=== PATIENT | female | born 1975 | race Caucasian/White ===

== ENCOUNTER 2017-11-03 08:41 | Emergency (ER) | payer SELFPAY ==
[~2017-11-03] VITALS: Ht 165.1 cm; Wt 136.0 kg
[~2017-11-03 08:41] MED LIST: CHLO.12%30 SSP; IBUP800T23 PO; PENI500T PO; PROM50SU PO; ZOFR4TAB3 SL
[2017-11-03 08:42] VITALS: BP 198/111; PULSE 81; RESP 18; TEMP 98.4; O2SAT 98
[2017-11-03 09:04] VITALS: BP 236/106; PULSE 70; RESP 12; O2SAT 100
[2017-11-03] MEDS ORDERED: ASPIRIN 325 MG TAB PO ONE (09:45)
[2017-11-03] MEDS: NITROGLYCERIN 0.4 MG SL 25 TABS/BTL SL SCH ×2 (09:50→10:10)
[2017-11-03 09:52] LABS: AUTOMATED NEUTROPHIL # 3.8 TH/MM3 (1.8-7.7); BASOPHIL # 0.1 TH/MM3 (0-0.2); BASOPHIL % 0.8 % (0.0-2.0); EOSINOPHIL # 0.1 TH/MM3 (0-0.4); EOSINOPHIL % 1.2 % (0.0-4.0); HEMATOCRIT 43.9 % (35.0-46.0); LYMPH % 35.9 % (9.0-44.0); LYMPHOCYTE # 2.4 TH/MM3 (1.0-4.8); MEAN CORPUSCULAR HEMOGLOBIN 31.3 PG (27.0-34.0); MEAN CORPUSCULAR HGB CONC 33.7 % (32.0-36.0); MONO % 4.6 % (0.0-8.0); NEUT % 57.5 % (16.0-70.0); PLATELET COUNT 184 TH/MM3 (150-450); RED BLOOD COUNT 4.72 MIL/MM3 (4.00-5.30); RED CELL DISTRIBUTION WIDTH 13.5 % (11.6-17.2); WHITE BLOOD COUNT 6.5 TH/MM3 (4.0-11.0)
--- NOTE | 2017-11-03 09:53 | PD ---
HPI Chief Complaint: Chest Pain Time Seen by Provider: 09:30 Travel History International Travel<30 days: No Contact w/Intl Traveler<30days: No Traveled to known affect area: No History of Present Illness HPI 42 y/o female presents with central chest pain that has been present for the past 2 days. She states it feels like a pressure on her chest. She denies taking any medication for this. She denies any other concurrent complaints. Quality is pressure. Severity is moderate. She denies any recurrent history of this. She denies any workup in the past. She denies specific modifying factors. FORMERLY [facility] Past Medical History Medical History: Denies Significant Hx Cancer: No Cardiovascular Problems: No Diabetes: No Diminished Hearing: No Endocrine: No Genitourinary: No Hepatitis: No Hiatal Hernia: No Immune Disorder: No Musculoskeletal: No Neurologic: No Psychiatric: No Reproductive: No Respiratory: No Immunizations Current: Yes Thyroid Disease: No ?: Not : 2 Para: 2 Miscarriage: 0 : 0 Past Surgical History Abdominal Surgery: No AICD: No Cardiac Surgery: No Cholecystectomy: Yes Ear Surgery: No Endocrine Surgery: No Eye Surgery: No Genitourinary Surgery: No Gynecologic Surgery: Yes (hysterectomy 1999) Hysterectomy: Yes Joint Replacement: No Oral Surgery: No Pacemaker: No Thoracic Surgery: No Family History Family Myocardial Infarction: No Social History Alcohol Use: No Tobacco Use: No Substance Use: No Allergies-Medications (Allergen,Severity, Reaction): Coded Allergies: No Known Allergies (Unverified Adverse Reaction, Unknown, 11/03/17) Reported Meds & Prescriptions Reported Meds & Active Scripts Active No Active Prescriptions or Reported Medications Review of Systems Except as stated in HPI: all other systems reviewed are Neg Physical Exam Narrative GENERAL: Well-nourished, well-developed patient. SKIN: Warm and dry. HEAD: Normocephalic and atraumatic. EYES: No injection or drainage. ENT: No nasal drainage noted. NECK: Supple, trachea midline. CARDIOVASCULAR: Regular rate and rhythm RESPIRATORY: Breath sounds equal bilaterally. No accessory muscle use. GASTROINTESTINAL: Abdomen soft, non-tender, nondistended. EXTREMITIES: No edema. NEUROLOGICAL: Awake and alert. Motor and sensory grossly within normal limits. Normal speech. Data Data Last Documented VS Vital Signs Date Time Temp Pulse Resp B/P (MAP) Pulse Ox O2 Delivery O2 Flow Rate FiO2 11/03/17 11:00 62 14 132/63 (86) 99 Nasal Cannula 2.00 11/03/17 08:42 98.4 Orders Orders Electrocardiogram (11/03/17 08:48) Complete Blood Count With Diff (11/03/17 08:48) Basic Metabolic Panel (Bmp) (11/03/17 08:48) Ckmb (Isoenzyme) Profile (11/03/17 08:48) Troponin I (11/03/17 08:48) Chest, Single Ap (11/03/17 08:48) Iv Access Insert/Monitor (11/03/17 08:48) Ecg Monitoring (11/03/17 08:48) Oxygen Administration (11/03/17 08:48) Oximetry (11/03/17 08:48) D-Dimer (11/03/17 09:19) Aspirin (Aspirin) (11/03/17 09:45) Nitroglycerin Sl (Nitrostat Sl) (11/03/17 09:45) Ondansetron Inj (Zofran Inj) (11/03/17 10:30) Ct Pulmonary Angiogram (11/03/17 ) Iohexol 350 Inj (Omnipaque 350 Inj) (11/03/17 12:38) Troponin I (11/03/17 12:52) Ed Discharge Order (11/03/17 13:58) Labs Laboratory Tests Test 11/03/17 10:13 11/03/17 13:00 White Blood Count 6.5 TH/MM3 Red Blood Count 4.72 MIL/MM3 Hemoglobin 14.8 GM/DL Hematocrit 43.9 % Mean Corpuscular Volume 93.0 FL Mean Corpuscular Hemoglobin 31.3 PG Mean Corpuscular Hemoglobin Concent 33.7 % Red Cell Distribution Width 13.5 % Platelet Count 184 TH/MM3 Mean Platelet Volume 9.8 FL Neutrophils (%) (Auto) 57.5 % Lymphocytes (%) (Auto) 35.9 % Monocytes (%) (Auto) 4.6 % Eosinophils (%) (Auto) 1.2 % Basophils (%) (Auto) 0.8 % Neutrophils # (Auto) 3.8 TH/MM3 Lymphocytes # (Auto) 2.4 TH/MM3 Monocytes # (Auto) 0.3 TH/MM3 Eosinophils # (Auto) 0.1 TH/MM3 Basophils # (Auto) 0.1 TH/MM3 CBC Comment AUTO DIFF Differential Comment AUTO DIFF CONFIRMED Platelet Estimate NORMAL Platelet Morphology Comment NORMAL D-Dimer Quantitative (PE/DVT) 0.57 MG/L FEU Blood Urea Nitrogen 14 MG/DL Creatinine 1.06 MG/DL Random Glucose 110 MG/DL Calcium Level 8.9 MG/DL Sodium Level 140 MEQ/L Potassium Level 4.0 MEQ/L Chloride Level 106 MEQ/L Carbon Dioxide Level 30.0 MEQ/L Anion Gap 4 MEQ/L Estimat Glomerular Filtration Rate 56 ML/MIN Total Creatine Kinase 62 U/L Troponin I LESS THAN 0.02 NG/ML LESS THAN 0.02 NG/ML MDM Medical Decision Making Medical Screen Exam Complete: Yes Emergency Medical Condition: Yes Medical Record Reviewed: Yes (past history confirmed) Interpretation(s) CBC & BMP Diagram 11/03/17 10:13 Calcium Level 8.9 Last 24 hours Impressions Chest X-Ray 11/03/17 0848 Signed Impressions: Service Date/Time: Friday, November 03, 2017 09:10 - CONCLUSION: No acute cardiopulmonary process. Estiven Ford MD CT Angiography 11/03/17 0000 Signed Impressions: Service Date/Time: Friday, November 03, 2017 12:24 - CONCLUSION: Normal examination. Mik Canela MD Differential Diagnosis PE, gastritis, musculoskeletal, cardiac Narrative Course Will check blood work, chest x-ray, EKG and dose with aspirin and nitroglycerin and reevaluate ed workup no emergent, offered pharmacy technology instructor observation, wanting to go home, will check second troponin and if normal discharge patient repeat troponin negative, Patient denies any new complaints and states that they are feeling better. not wanting to stay, Patient happy with care, all questions answered. Patient knows that follow up is incumbent on them and to return to the emergency room immediately if new or worsening symptoms develop. Patient given strict return precautions, vitals reviewed and are normal, agrees to further workup as an outpatient. Diagnosis Primary Impression: Chest pain Qualified Codes: R07.9 - Chest pain, unspecified Patient Instructions: General Instructions Additional Instructions: return as needed, follow with primary tommorrow Med/Other Pt SpecificInfo: No Change to Meds Scripts No Active Prescriptions or Reported Meds Disposition: DISCHARGE HOME Condition: Stable Samina Bella MD Nov 03, 2017 09:53
[2017-11-03 09:54] LABS: HEMO FLAGS AUTO DIFF
[2017-11-03 10:15] VITALS: BP 155/80; PULSE 76; RESP 20; O2SAT 98
--- NOTE | 2017-11-03 10:19 | RADRPT ---
EXAM DATE/TIME: 11/03/2017 09:10 [facility] COMPARISON: No previous studies available for comparison. INDICATIONS : Chest pain x 1day. MEDICAL HISTORY : None. SURGICAL HISTORY : None. ENCOUNTER: Initial ACUITY: 1 day PAIN SCORE: 7/10 LOCATION: Bilateral chest FINDINGS: A single view of the chest demonstrates the lungs to be symmetrically aerated without evidence of mas s, infiltrate or effusion. The cardiomediastinal contours are unremarkable. Osseous structures are intact. CONCLUSION: No acute cardiopulmonary process. Estiven Ford MD on November 03, 2017 at 10:17 Board Certified Radiologist. This report was verified electronically.
[2017-11-03 10:30] VITALS: BP 142/68; PULSE 66; RESP 20; O2SAT 98
[2017-11-03] MEDS ORDERED: ONDANSETRON HCL 4 MG/2 ML VIAL IV PUSH ONE (10:30)
[2017-11-03 10:59] LABS: PLATELET ESTIMATE SMEAR NORMAL (NORMAL); PLATELET MORPHOLOGY NORMAL (NORMAL); SCAN/DIFF AUTO DIFF CONFIRMED
[2017-11-03 11:00] VITALS: BP 132/63; PULSE 62; RESP 14; O2SAT 99
[2017-11-03 11:16] LABS: ANION GAP 4 MEQ/L (5-15); BLOOD UREA NITROGEN 14 MG/DL (7-18); CHLORIDE 106 MEQ/L (98-107); GLOMERULAR FILTRATION RATE 56 ML/MIN (>89); SODIUM (NA) 140 MEQ/L (136-145)
[2017-11-03 11:21] LABS: CREATINE KINASE 62 U/L (26-192)
[2017-11-03] MEDS ORDERED: IOHEXOL 350 MG/ML 10 ML VIAL (for RAD DIAG) IVCONTRAST ONE (12:38)
--- NOTE | 2017-11-03 12:43 | RADRPT ---
EXAM DATE/TIME: 11/03/2017 12:24 [facility] COMPARISON: No previous studies available for comparison. INDICATIONS : Chest pain with shortness of breath. IV CONTRAST: 50 cc Omnipaque 350 (iohexol) IV RADIATION DOSE: 24.17 CTDIvol (mGy) MEDICAL HISTORY : None SURGICAL HISTORY : Cholecystectomy. Hysterectomy. ENCOUNTER: Initial ACUITY: 2 days PAIN SCALE: 4/10 LOCATION: Bilateral chest TECHNIQUE: Volumetric scanning of the chest was performed using a pulmonary embolism protocol MIP images were re constructed. Using automated exposure control and adjustment of the mA and/or kV according to patien t size, radiation dose was kept as low as reasonably achievable to obtain optimal diagnostic quality images. DICOM format image data is available electronically for review and comparison. Follow-up recommendations for detected pulmonary nodules are based at a minimum on nodule size and pa tient risk factors according to Fleischner Society Guidelines. FINDINGS: PULMONARY ARTERIES: No filling defects are seen in the pulmonary arteries through the segmental level. LUNGS: There is no consolidation or pneumothorax . No concerning pulmonary nodule is visualized. PLEURAE: There is no pleural thickening or pleural effusion. MEDIASTINUM: There is good visualization of the great vessels of the middle mediastinum. No evidence of mediastin al or hilar adenopathy/mass. MUSCULOSKELETAL: Within normal limits for patient age. MISCELLANEOUS: The visualized upper abdominal organs demonstrate no acute abnormality. CONCLUSION: Normal examination. Mik Canela MD on November 03, 2017 at 12:41 Board Certified Radiologist. This report was verified electronically.
[2017-11-03 14:34] VITALS: BP 143/78
--- NOTE | 2017-11-04 10:31 | EKG ---
Date Performed: 11/03/2017 Time Performed: 08:59:29 PTAGE: 42 years EKG: Sinus rhythm MINIMAL VOLTAGE CRITERIA FOR LVH, CONSIDER NORMAL VARIANT BORDERLINE ECG NO PREVIOUS TRACING DOCTOR: Garima Andre Interpretating Date/Time 11/04/2017 10:30:22
== END 2017-11-03 14:00 | disposition home or self-care (01) ==
LOC: NEPC 08:41
DX: R07.9 Chest pain, unspecified (principal)
CPT/HCPCS: 71010; 71275; 80048; 82550; 84484; 85025; 85379; 93005; 96374; 99285; J2405; Q9967

== ENCOUNTER 2018-04-12 23:52 | Emergency (ER) | payer SELFPAY ==
[~2018-04-12] VITALS: Ht 165.1 cm; Wt 140.0 kg
[2018-04-12 23:57] VITALS: BP 181/104; PULSE 88; RESP 18; TEMP 99.3; O2SAT 99
[2018-04-13 00:10] VITALS: BP 194/108; PULSE 82; RESP 20; O2SAT 99
[2018-04-13] MEDS ORDERED: SODIUM CHLOR 0.9% 1000 ML INJ 1,000 ML IV ONE (00:15)
[2018-04-13] MEDS ORDERED: PROCHLORPERAZINE INJ 10 MG/2 ML VIAL IV PUSH ONE (00:15)
[2018-04-13] MEDS ORDERED: MORPHINE SULFATE 4 MG/ML INJ IV PUSH ONE (00:15)
--- NOTE | 2018-04-13 00:29 | PD ---
HPI Chief Complaint: Abdominal Pain Time Seen by Provider: 00:02 Travel History International Travel<30 days: No Contact w/Intl Traveler<30days: No Traveled to known affect area: No History of Present Illness HPI The patient is a 42 year old female who presents to the [facility] emergency department with a history of nausea and vomiting that began 3 days ago. The patient reports that yesterday she began to have abdominal pain in the center of her abdomen, slightly worse on the right side compared to the left. The patient reports that the pain has been constant with intermittent sharp jabbing sensations. She reports that the baseline level of pain is cramping in character. She reports the pain is worse with eating. She reports that yesterday she began to have diarrhea. She reports that she has had diarrhea 5 times today. She reports that the stool is watery and brown. She denies having any blood in her stool. She reports that she has had nausea and vomiting approximately 2-3 times per day. She reports having a subjective fever. She denies having any known sick contacts, recent antibiotic use, or unusual food intake. She reports that the pain was made worse earlier today with taking Motrin. She denies having any dysuria, however she does report having urinary urgency which is been chronic, no urinary frequency. She denies having any vaginal discharge or vaginal bleeding. She reports that on Wednesday and Wednesday she did have a cough, however nothing significant since then. A review of systems otherwise, the patient denies having any neck pain, chest pain , shortness of breath, or neurologic symptoms. LMP: A 22 years of age when she had a history PFSH Past Medical History Narrative Medical The patient's past medical history is reportedly none. Medical History: Denies Significant Hx Cancer: No Cardiovascular Problems: No Diabetes: No Diminished Hearing: No Endocrine: No Gastrointestinal Disorders: Yes Genitourinary: No Hepatitis: No Hiatal Hernia: No Immune Disorder: No Musculoskeletal: No Neurologic: No Psychiatric: No Reproductive: No Respiratory: No Immunizations Current: Yes Thyroid Disease: No Tetanus Vaccination: < 5 Years Influenza Vaccination: No ?: Not : 2 Para: 2 Miscarriage: 0 : 0 Past Surgical History Narrative Surgical The patient's past surgical history is significant for cholecystectomy, hysterectomy Abdominal Surgery: No AICD: No Cardiac Surgery: No Cholecystectomy: Yes Ear Surgery: No Endocrine Surgery: No Eye Surgery: No Genitourinary Surgery: No Gynecologic Surgery: Yes (hysterectomy 1999) Hysterectomy: Yes Joint Replacement: No Oral Surgery: No Pacemaker: No Thoracic Surgery: No Social History Alcohol Use: No Tobacco Use: No Substance Use: No Allergies-Medications (Allergen,Severity, Reaction): Coded Allergies: No Known Allergies (Unverified Adverse Reaction, Unknown, 04/13/18) Reported Meds & Prescriptions Reported Meds & Active Scripts Active Zofran Odt (Ondansetron Odt) 4 Mg Tab 4 Mg SL Q6HR PRN Bentyl (Dicyclomine HCl) 10 Mg Cap 10 Mg PO TID PRN Review of Systems Except as stated in HPI: all other systems reviewed are Neg General / Constitutional: No: Fever Eyes: No: Visual changes HENT: Positive: Congestion, No: Headaches Cardiovascular: No: Chest Pain or Discomfort Respiratory: Positive: Cough, No: Shortness of Breath Gastrointestinal: Positive: Nausea, Vomiting, Diarrhea, Abdominal Pain, Changes in Bowel Habits, Loss of Appetite, No: Hematemesis, Hematochezia, Indigestion Genitourinary: Positive: Urgency, No: Frequency, Dysuria Musculoskeletal: No: Pain Skin: No Rash Neurologic: No: Weakness Psychiatric: No: Depression Endocrine: No: Polydipsia Hematologic/Lymphatic: No: Easy Bruising Physical Exam Narrative General: The patient is a well-developed well-nourished female, uncomfortable appearing on arrival reportedly related to abdominal pain. Head and Neck exam: Head is normocephalic atraumatic. Eyes: EOMI, pupils are equal round and reactive to light. Nose: Midline septum with pink mucous membranes Mouth: Dentition unremarkable. Moist mucus membranes. Posterior oropharynx is not erythematous. No tonsillar hypertrophy. Uvula midline. Airway patent. Neck: No palpable lymphadenopathy. No nuchal rigidity. No thyromegaly. Cardiovascular: Regular rate and rhythm without murmurs, gallops, or rubs. No pulse deficit to the extremities on simultaneous auscultation and palpation of her radial artery. Lungs: Clear to auscultation bilaterally. No wheezes, rhonchi, or rales. Abdomen: Soft, with tenderness on palpation in the right upper and right lower quadrant of the abdomen, and periumbilical area. No palpated abdominal hernia or umbilical hernia. No other tenderness on palpation of the other quadrants of the abdomen. No guarding, rebound, or rigidity. No point tenderness specifically on palpation over McBurney's point. Negative Rovsing sign. Extremities: No clubbing, cyanosis, or edema. 2+ pulses in all 4 extremities. No calf tenderness on palpation. Back: No costovertebral angle tenderness to palpation. Neurologic Exam: Grossly nonfocal. Skin Exam: No rash noted. Intact skin that is warm and dry. Data Data Last Documented VS Vital Signs Date Time Temp Pulse Resp B/P (MAP) Pulse Ox O2 Delivery O2 Flow Rate FiO2 04/13/18 01:32 16 04/13/18 00:38 82 175/76 (109) 99 Room Air 04/12/18 23:57 99.3 Orders Orders Electrocardiogram (04/13/18 00:12) Complete Blood Count With Diff (04/13/18 00:12) Comprehensive Metabolic Panel (04/13/18 00:12) Prothrombin Time / Inr (Pt) (04/13/18 00:12) Act Partial Throm Time (Ptt) (04/13/18 00:12) C-Reactive Protein (Crp) (04/13/18 00:12) Lipase (04/13/18 00:12) Urinalysis - C+S If Indicated (04/13/18 00:12) Magnesium (Mg) (04/13/18 00:12) Chest, Single Ap (04/13/18 00:12) Ct Abd/Pel W Iv Contrast(Rout) (04/13/18 00:12) Iv Access Insert/Monitor (04/13/18 00:12) Ecg Monitoring (04/13/18 00:12) Oximetry (04/13/18 00:12) Sodium Chlor 0.9% 1000 Ml Inj (Ns 1000 M (04/13/18 00:15) Prochlorperazine Inj (Compazine Inj) (04/13/18 00:15) Morphine Inj (Morphine Inj) (04/13/18 00:15) Iohexol 350 Inj (Omnipaque 350 Inj) (04/13/18 01:37) Ketorolac Inj (Toradol Inj) (04/13/18 02:30) Labs Laboratory Tests Test 04/13/18 00:15 White Blood Count 10.5 TH/MM3 Red Blood Count 4.77 MIL/MM3 Hemoglobin 14.5 GM/DL Hematocrit 43.3 % Mean Corpuscular Volume 90.8 FL Mean Corpuscular Hemoglobin 30.3 PG Mean Corpuscular Hemoglobin Concent 33.4 % Red Cell Distribution Width 13.4 % Platelet Count 287 TH/MM3 Mean Platelet Volume 8.0 FL Neutrophils (%) (Auto) 59.2 % Lymphocytes (%) (Auto) 34.5 % Monocytes (%) (Auto) 4.7 % Eosinophils (%) (Auto) 0.9 % Basophils (%) (Auto) 0.7 % Neutrophils # (Auto) 6.2 TH/MM3 Lymphocytes # (Auto) 3.6 TH/MM3 Monocytes # (Auto) 0.5 TH/MM3 Eosinophils # (Auto) 0.1 TH/MM3 Basophils # (Auto) 0.1 TH/MM3 CBC Comment DIFF FINAL Differential Comment Prothrombin Time 9.8 SEC Prothromb Time International Ratio 1.0 RATIO Activated Partial Thromboplast Time 26.1 SEC Urine Color LIGHT-YELLOW Urine Turbidity CLEAR Urine pH 5.5 Urine Specific [place] 1.024 Urine Protein NEG mg/dL Urine Glucose (UA) NEG mg/dL Urine Ketones NEG mg/dL Urine Occult Blood NEG Urine Nitrite NEG Urine Bilirubin NEG Urine Urobilinogen LESS THAN 2.0 MG/DL Urine Leukocyte Esterase SMALL Urine RBC 1 /hpf Urine WBC 3 /hpf Urine Squamous Epithelial Cells 3 /hpf Urine Mucus FEW /lpf Microscopic Urinalysis Comment CULT NOT INDICATED Blood Urea Nitrogen 21 MG/DL Creatinine 1.08 MG/DL Random Glucose 103 MG/DL Total Protein 7.6 GM/DL Albumin 3.3 GM/DL Calcium Level 8.3 MG/DL Magnesium Level 2.2 MG/DL Alkaline Phosphatase 115 U/L Aspartate Amino Transf (AST/SGOT) 16 U/L Alanine Aminotransferase (ALT/SGPT) 17 U/L Total Bilirubin 0.3 MG/DL Sodium Level 144 MEQ/L Potassium Level 4.1 MEQ/L Chloride Level 107 MEQ/L Carbon Dioxide Level 28.6 MEQ/L Anion Gap 8 MEQ/L Estimat Glomerular Filtration Rate 55 ML/MIN C-Reactive Protein 0.62 MG/DL Lipase 220 U/L [facility] Medical Decision Making Medical Screen Exam Complete: Yes Emergency Medical Condition: Yes Medical Record Reviewed: Yes Differential Diagnosis Pancreatitis, versus colitis, versus diverticulitis, versus appendicitis, versus mesenteric adenitis, versus gastroenteritis Narrative Course During the course of the patient's emergency department visit, the patient's history, examination, and differential diagnosis were reviewed with the patient. The patient was placed on a electronic device monitor with oximetry and frequent blood pressure monitoring. The patient had IV access obtained and blood work sent for analysis. Stone that was negative, EKG shows a sinus rhythm heart rate of 76, QRS duration 106 ms, QTC [address] segment elevation. T waves are inverted in V1, lead III, aVF. The patient was initially provided normal saline 1 L IV fluid bolus, Compazine 5 mg IV, morphine 4 mg IV. The patient's laboratory studies were reviewed and remarkable for a CBC that is within normal limits, CMP is remarkable for BUN of 21, creatinine 1.08, calcium 8.3, C-reactive protein 0.62, albumin 3.3, lipase 220, PT 9.8, PTT 26.1, urinalysis shows small leukocyte esterase otherwise unremarkable Radiology studies: Last Impressions Chest X-Ray 04/13/18 001 Signed Impressions: Service Date/Time: Friday, April 13, 2018 00:21 - CONCLUSION: Normal examination. David Hernandez Jr., MD Abdomen/Pelvis CT 04/13/182 Signed Impressions: Service Date/Time: Friday, April 13, 2018 01:27 - CONCLUSION: 1. No acute abnormality to explain the patient's pain. 2. Prior cholecystectomy. David Hernandez Jr., MD The patient on reexamination reports that the is improved, however it is slightly worsening again. The patient was given Toradol 15 mg IV. The patient will be discharged home with a prescription for Bentyl and Zofran for nausea. The patient is instructed to push fluids and get plenty of rest. The patient is instructed to push fluids with electrolyte rich solution such as Gatorade or Pedialyte. The patient is instructed to avoid lactose containing food and drink over the next week and then slowly advance her diet normal following this. The patient is instructed to follow-up with the [facility] for reexamination in 2 days. The patient is instructed to have her blood pressure rechecked as it was noted to be elevated in the emergency department. The patient is resting comfortably and feels better, is alert and in no distress. The patient's results and examination findings were discussed with the patient. The repeat examination is unremarkable and benign. The history, exam, diagnostic testing, and current condition do not suggest any significant pathology to warrant further testing, continued ED treatment, admission, or surgical evaluation at this point. The vital signs have been stable. The patient does not have uncontrollable pain, intractable vomiting, or other significant symptoms. The patient's condition is stable and appropriate for discharge. The patient will pursue further outpatient evaluation with a primary care physician or other designated or consulting physician as indicated in the discharge instructions. The patient expressed understanding and was agreeable with this plan. Diagnosis Primary Impression: Nausea, vomiting, and diarrhea Additional Impressions: Abdominal pain Qualified Codes: R10.84 - Generalized abdominal pain Hypertension Qualified Codes: I10 - Essential (primary) hypertension Referrals: [facility] 2 days Patient Instructions: Abdominal Pain (ED), Acute Diarrhea (ED), Acute Nausea and Vomiting (ED), General Instructions, Hypertension (ED) Additional Instructions: The patient is instructed to push fluids and get plenty of rest. The patient is instructed to push fluids with electrolyte rich solution such as Gatorade or Pedialyte. The patient is instructed to avoid lactose containing food and drink over the next week and then slowly advance her diet normal following this. The patient is instructed to follow-up with the [facility] for reexamination in 2 days. The patient is instructed to have her blood pressure rechecked as it was noted to be elevated in the emergency department. Med/Other Pt SpecificInfo: Prescription(s) given Scripts Ondansetron Odt (Zofran Odt) 4 Mg Tab 4 MG SL Q6HR Y for Nausea/Vomiting, #7 TAB 0 Refills Prov: Brigette Paniagua MD 04/13/18 Dicyclomine (Bentyl) 10 Mg Cap 10 MG PO TID Y for Bowel Management, #6 CAP 0 Refills Prov: Brigette Paniagua MD 04/13/18 Disposition: DISCHARGE HOME Condition: Stable Brigette Paniagua MD April 13, 2018 00:29
--- NOTE | 2018-04-13 00:34 | RADRPT ---
EXAM DATE/TIME: 04/13/2018 00:21 [facility] COMPARISON: CHEST SINGLE AP, November 03, 2017, 9:10. INDICATIONS : Chest and abdomen pain. MEDICAL HISTORY : None. SURGICAL HISTORY : None. ENCOUNTER: Initial ACUITY: 1 day PAIN SCORE: 5/10 LOCATION: Bilateral chest FINDINGS: A single view of the chest demonstrates the lungs to be symmetrically aerated without evidence of mas s, infiltrate or effusion. The cardiomediastinal contours are unremarkable. Osseous structures are intact. CONCLUSION: Normal examination. David Hernandez Jr., MD on April 13, 2018 at 0:31 Board Certified Radiologist. This report was verified electronically.
[2018-04-13 00:38] VITALS: BP 175/76; PULSE 82; RESP 18; O2SAT 99
[2018-04-13 00:42] LABS: AUTOMATED NEUTROPHIL # 6.2 TH/MM3 (1.8-7.7); BASOPHIL # 0.1 TH/MM3 (0-0.2); BASOPHIL % 0.7 % (0.0-2.0); EOSINOPHIL # 0.1 TH/MM3 (0-0.4); EOSINOPHIL % 0.9 % (0.0-4.0); HEMATOCRIT 43.3 % (35.0-46.0); HEMOGLOBIN 14.5 GM/DL (11.6-15.3); LYMPH % 34.5 % (9.0-44.0); LYMPHOCYTE # 3.6 TH/MM3 (1.0-4.8); MEAN CELL VOLUME 90.8 FL (80.0-100.0); MEAN CORPUSCULAR HEMOGLOBIN 30.3 PG (27.0-34.0); MEAN CORPUSCULAR HGB CONC 33.4 % (32.0-36.0); MONO % 4.7 % (0.0-8.0); MONOCYTE # 0.5 TH/MM3 (0-0.9); NEUT % 59.2 % (16.0-70.0); PLATELET COUNT 287 TH/MM3 (150-450); RED BLOOD COUNT 4.77 MIL/MM3 (4.00-5.30); RED CELL DISTRIBUTION WIDTH 13.4 % (11.6-17.2); WHITE BLOOD COUNT 10.5 TH/MM3 (4.0-11.0)
[2018-04-13 00:43] LABS: BILIRUBIN, URINE NEG (NEG); BLOOD, URINE NEG (NEG); GLUCOSE,URINE NEG (NEG); KETONE, URINE NEG (NEG); MUCUS URINE FEW /lpf (OCC); NITRITE,URINE NEG (NEG); PH, URINE 5.5 (5.0-8.5); SQUAMOUS EPITHELIAL CELL URINE 3 /hpf (0-5); URINE COLOR LIGHT-YELLOW (YELLW/STRAW); URINE LEUKOCYTE ESTERASE SMALL (NEG)
[2018-04-13 00:55] LABS: PROTHROMBIN TIME - PATIENT 9.8 SEC (9.8-11.6)
[2018-04-13 01:00] VITALS: BP 163/84; PULSE 76; RESP 18; O2SAT 99
[2018-04-13 01:01] LABS: ALBUMIN 3.3 GM/DL (3.4-5.0); ALT (GPT) 17 U/L (10-53); AST (GOT) 16 U/L (15-37); BICARBONATE 28.6 MEQ/L (21.0-32.0); BLOOD UREA NITROGEN 21 MG/DL (7-18); CALCIUM 8.3 MG/DL (8.5-10.1); CHLORIDE 107 MEQ/L (98-107); CREATININE 1.08 MG/DL (0.50-1.00); GLOMERULAR FILTRATION RATE 55 ML/MIN (>89); GLUCOSE,RANDOM 103 MG/DL (74-106); MAGNESIUM 2.2 MG/DL (1.5-2.5); SODIUM (NA) 144 MEQ/L (136-145)
[2018-04-13 01:04] LABS: ALKALINE PHOSPHATASE 115 U/L (45-117); C-REACTIVE PROTEIN 0.62 MG/DL (0.00-0.30); TOTAL BILIRUBIN ADULT 0.3 MG/DL (0.2-1.0); TOTAL PROTEIN 7.6 GM/DL (6.4-8.2)
[2018-04-13] MEDS ORDERED: IOHEXOL 350 MG/ML 10 ML VIAL (for RAD DIAG) IVCONTRAST ONE (01:37)
[2018-04-13 02:00] VITALS: BP 178/98; PULSE 74; RESP 18; O2SAT 99
--- NOTE | 2018-04-13 02:00 | RADRPT ---
EXAM DATE/TIME: 04/13/2018 01:27 [facility] COMPARISON: No previous studies available for comparison. INDICATIONS : Abdomen pain. IV CONTRAST: 100 cc Omnipaque 350 (iohexol) IV ORAL CONTRAST: No oral contrast ingested. RADIATION DOSE: 30.48 CTDIvol (mGy) ; Patient body habitus MEDICAL HISTORY : None SURGICAL HISTORY : Cholecystectomy. Hysterectomy. ENCOUNTER: Initial ACUITY: 1 day PAIN SCALE: 5/10 LOCATION: Bilateral abdomen TECHNIQUE: Volumetric scanning of the abdomen and pelvis was performed. Using automated exposure control and ad justment of the mA and/or kV according to patient size, radiation dose was kept as low as reasonably achievable to obtain optimal diagnostic quality images. DICOM format image data is available electro nically for review and comparison. FINDINGS: LOWER LUNGS: The visualized lower lungs are clear. LIVER: Homogeneous density without lesion. There is no dilation of the biliary tree. Prior cholecystectomy. SPLEEN: Normal size without lesion. PANCREAS: Within normal limits. KIDNEYS: Normal in size and shape. 1 cm left upper pole renal cyst. There is no mass, stone or hydronephrosis. ADRENAL GLANDS: Within normal limits. VASCULAR: There is no aortic aneurysm. BOWEL/MESENTERY: The stomach, small bowel, and colon demonstrate no acute abnormality. There is no free intraperitone al air or fluid. ABDOMINAL WALL: Within normal limits. RETROPERITONEUM: There is no lymphadenopathy. BLADDER: No wall thickening or mass. REPRODUCTIVE: Within normal limits. INGUINAL: There is no lymphadenopathy or hernia. MUSCULOSKELETAL: Within normal limits for patient age. CONCLUSION: 1. No acute abnormality to explain the patient's pain. 2. Prior cholecystectomy. David Hernandez Jr., MD on April 13, 2018 at 1:56 Board Certified Radiologist. This report was verified electronically.
[2018-04-13] MEDS ORDERED: DICY10 PO (02:27)
[2018-04-13] MEDS ORDERED: ZOFR4TAB3 SL (02:27)
[2018-04-13] MEDS ORDERED: KETOROLAC TROMETHAMINE 30 MG/ML (IVP) VIAL IV PUSH ONE (02:30)
[2018-04-13 02:41] VITALS: BP 168/92
--- NOTE | 2018-04-13 22:22 | EKG ---
Date Performed: 04/13/2018 Time Performed: 01:04:12 PTAGE: 42 years EKG: Sinus rhythm MODERATE VOLTAGE CRITERIA FOR LVH, CONSIDER NORMAL VARIANT BORDERLINE ECG PREVIOUS TRACING : 11/03/2017 08.59 Since the previous tracing, no significant change noted DOCTOR: Chet Allan Interpretating Date/Time 04/13/2018 22:20:23
== END 2018-04-13 03:00 | disposition home or self-care (01) ==
LOC: NEPE 23:52
DX: R11.2 Nausea with vomiting, unspecified (principal); R19.7 Diarrhea, unspecified; R10.84 Generalized abdominal pain; I10 Essential (primary) hypertension
CPT/HCPCS: 71045; 74177; 80053; 81001; 83690; 83735; 85025; 85610; 85730; 86140; 93005; 96361; 96374; 96375; 99285; J0780; J1885; J2270; J7030; Q9967

== ENCOUNTER 2018-05-15 07:51 | Emergency (ER) | payer SELFPAY ==
[~2018-05-15] VITALS: Ht 165.1 cm; Wt 145.0 kg
[~2018-05-15 07:51] MED LIST changes: -CHLO.12%30 SSP; +DICY10 PO; -IBUP800T23 PO; -PENI500T PO; -PROM50SU PO
[2018-05-15] MEDS ORDERED: IOHEXOL 350 MG/ML 10 ML VIAL (for RAD DIAG) IVCONTRAST ONE (07:52)
[2018-05-15 07:54] VITALS: BP 168/75; PULSE 116; RESP 22; TEMP 99.2; O2SAT 96
[2018-05-15] MEDS ORDERED: SODIUM CHLOR 0.9% 1000 ML INJ 1,000 ML IV SCH (08:02)
[2018-05-15 08:12] VITALS: O2SAT 95
[2018-05-15] MEDS ORDERED: PROMETHAZINE INJ 25 MG/ML VIAL IM ONE (08:15)
[2018-05-15] MEDS ORDERED: DICYCLOMINE HCL 20 MG/2 ML VIAL IM ONE (08:15)
[2018-05-15] MEDS ORDERED: SODIUM CHLORIDE 0.9% FLUSH 10 ML FLUSH IV FLUSH PRN (08:15)
--- NOTE | 2018-05-15 08:19 | PD ---
HPI Chief Complaint: GI Complaint Time Seen by Provider: 08:02 Travel History International Travel<30 days: No Contact w/Intl Traveler<30days: No Traveled to known affect area: No History of Present Illness HPI 42-year-old female patient presents to the ER today with nausea, vomiting, diarrhea, and a right flank pain radiation down to the right lower quadrant. She states is currently a 6 out of 10. She denies any fevers. She states that it started on its own, has had a similar episode once in the past but was not told what was the cause. She does not know of any exacerbating alleviating factors. She is status post cholecystectomy and hysterectomy. She denies any new antibiotic use or new medications, denies stopping any medications that she has been on in the past, does not know any sick contacts. Modifying Factors: None Associated Signs & Symptoms: Right-sided flank pain, nausea, vomiting, diarrhea Risk Factors: None PFSH Past Medical History Medical History: Denies Significant Hx Cardiovascular Problems: No Diminished Hearing: No Gastrointestinal Disorders: Yes Genitourinary: No Immune Disorder: No Musculoskeletal: No Neurologic: No Psychiatric: No Reproductive: No Respiratory: No Immunizations Current: Yes Tetanus Vaccination: Unknown ?: Not : 2 Para: 2 Miscarriage: 0 : 0 Past Surgical History Abdominal Surgery: No AICD: No Cardiac Surgery: No Cholecystectomy: Yes Ear Surgery: No Endocrine Surgery: No Eye Surgery: No Genitourinary Surgery: No Gynecologic Surgery: Yes (hysterectomy 1999) Hysterectomy: Yes Oral Surgery: No Pacemaker: No Thoracic Surgery: No Other Surgery: Yes Social History Alcohol Use: No Tobacco Use: No Substance Use: No Allergies-Medications (Allergen,Severity, Reaction): Coded Allergies: No Known Allergies (Verified Adverse Reaction, Unknown, 05/15/18) Reported Meds & Prescriptions Reported Meds & Active Scripts Active No Active Prescriptions or Reported Medications Review of Systems Except as stated in HPI: all other systems reviewed are Neg Physical Exam Narrative GENERAL: Well-developed middle-age female patient currently in moderate distress. Awake and oriented 3. SKIN: Focused skin assessment warm/dry. HEAD: Atraumatic. Normocephalic. EYES: Pupils equal and round. No scleral icterus. No injection or drainage. ENT: No nasal bleeding or discharge. Mucous membranes pink and moist. NECK: Trachea midline. No JVD. CARDIOVASCULAR: Regular rate and rhythm. No murmur appreciated. RESPIRATORY: No accessory muscle use. Clear to auscultation. Breath sounds equal bilaterally. GASTROINTESTINAL: Abdomen soft, mild right upper quadrant and periumbilical tenderness without guarding or rebound, nondistended. Hepatic and splenic margins not palpable. BACK: No CVA tenderness. No rash. No point tenderness on palpation of the spine. MUSCULOSKELETAL: No obvious deformities. No clubbing. No cyanosis. No edema. NEUROLOGICAL: Awake and alert. No obvious cranial nerve deficits. Motor grossly within normal limits. Normal speech. PSYCHIATRIC: Appropriate mood and affect; insight and judgment normal. Data Data Last Documented VS Vital Signs Date Time Temp Pulse Resp B/P (MAP) Pulse Ox O2 Delivery O2 Flow Rate FiO2 05/15/18 08:29 107 20 168/75 (106) 95 Room Air 05/15/18 07:54 99.2 Orders Orders Complete Blood Count With Diff (05/15/18 08:02) Comprehensive Metabolic Panel (05/15/18 08:02) Lipase (05/15/18 08:02) Urinalysis - C+S If Indicated (05/15/18 08:02) Ct Abd/Pel W Iv Contrast(Rout) (05/15/18 08:02) Iv Access Insert/Monitor (05/15/18 08:02) Ecg Monitoring (05/15/18 08:02) Oximetry (05/15/18 08:02) Sodium Chlor 0.9% 1000 Ml Inj (Ns 1000 M (05/15/18 08:02) Sodium Chloride 0.9% Flush (Ns Flush) (05/15/18 08:15) Dicyclomine Inj (Bentyl Inj) (05/15/18 08:15) Promethazine Inj (Phenergan Inj) (05/15/18 08:15) Iohexol 350 Inj (Omnipaque 350 Inj) (05/15/18 07:52) Acetaminophen (Tylenol) (05/15/18 09:45) Ed Discharge Order (05/15/18 09:42) Labs Laboratory Tests Test 05/15/18 08:20 05/15/18 08:45 White Blood Count 10.1 TH/MM3 Red Blood Count 4.72 MIL/MM3 Hemoglobin 14.4 GM/DL Hematocrit 42.8 % Mean Corpuscular Volume 90.5 FL Mean Corpuscular Hemoglobin 30.6 PG Mean Corpuscular Hemoglobin Concent 33.8 % Red Cell Distribution Width 13.1 % Platelet Count 274 TH/MM3 Mean Platelet Volume 8.4 FL Neutrophils (%) (Auto) 92.3 % Lymphocytes (%) (Auto) 5.6 % Monocytes (%) (Auto) 1.7 % Eosinophils (%) (Auto) 0.2 % Basophils (%) (Auto) 0.2 % Neutrophils # (Auto) 9.3 TH/MM3 Lymphocytes # (Auto) 0.6 TH/MM3 Monocytes # (Auto) 0.2 TH/MM3 Eosinophils # (Auto) 0.0 TH/MM3 Basophils # (Auto) 0.0 TH/MM3 CBC Comment DIFF FINAL Differential Comment Blood Urea Nitrogen 14 MG/DL Creatinine 1.18 MG/DL Random Glucose 136 MG/DL Total Protein 8.0 GM/DL Albumin 3.5 GM/DL Calcium Level 8.7 MG/DL Alkaline Phosphatase 124 U/L Aspartate Amino Transf (AST/SGOT) 18 U/L Alanine Aminotransferase (ALT/SGPT) 19 U/L Total Bilirubin 0.8 MG/DL Sodium Level 139 MEQ/L Potassium Level 3.9 MEQ/L Chloride Level 107 MEQ/L Carbon Dioxide Level 22.5 MEQ/L Anion Gap 10 MEQ/L Estimat Glomerular Filtration Rate 50 ML/MIN Lipase 164 U/L Urine Color YELLOW Urine Turbidity HAZY Urine pH 5.0 Urine Specific [place] 1.020 Urine Protein NEG mg/dL Urine Glucose (UA) NEG mg/dL Urine Ketones NEG mg/dL Urine Occult Blood NEG Urine Nitrite NEG Urine Bilirubin NEG Urine Urobilinogen LESS THAN 2 mg/dL Urine Leukocyte Esterase NEG Urine RBC LESS THAN 1 /hpf Urine WBC LESS THAN 1 /hpf Urine Squamous Epithelial Cells 1 /hpf Urine Bacteria OCC /hpf Urine Mucus FEW /lpf Microscopic Urinalysis Comment CULT NOT INDICATED MDM Medical Decision Making Medical Screen Exam Complete: Yes Emergency Medical Condition: Yes Medical Record Reviewed: Yes Interpretation(s) Laboratory Tests Test 05/15/18 08:20 05/15/18 08:45 Neutrophils (%) (Auto) 92.3 % (16.0-70.0) Lymphocytes (%) (Auto) 5.6 % (9.0-44.0) Neutrophils # (Auto) 9.3 TH/MM3 (1.8-7.7) Lymphocytes # (Auto) 0.6 TH/MM3 (1.0-4.8) Creatinine 1.18 MG/DL (0.50-1.00) Random Glucose 136 MG/DL (74-106) Alkaline Phosphatase 124 U/L (45-117) Estimat Glomerular Filtration Rate 50 ML/MIN (>89) Urine Turbidity HAZY (CLEAR) Urine Bacteria OCC /hpf (NONE) Urine Mucus FEW /lpf (OCC) Last 24 hours Impressions Abdomen/Pelvis CT 05/15/18 0802 Signed Impressions: CONCLUSION: 1. No abnormality is identified to explain the right-sided abdominal pain. 2. Stable mild splenomegaly. Differential Diagnosis Gastroenteritis versus renal colic versus pyelonephritis versus appendicitis Narrative Course Lab work did not show significant metabolic issues, dehydration, electrolyte abnormalities, or significant leukocytosis. CAT scan of the abdomen pelvis did not show any signs of acute processes. Patient was given IV fluids, nausea medications, pain medications in the ER. She did not have further vomiting episodes in the ER. She did complain of a headache which she was given Tylenol for. She has not having any meningeal signs, no photophobia or neck stiffness. At this point, my plan would be to release the patient with further symptomatic relief for nausea and vomiting. Return for worsening symptoms as needed. The plan has been discussed with her and she states understanding. Diagnosis Primary Impression: Gastroenteritis Med/Other Pt SpecificInfo: Prescription(s) given Scripts Dicyclomine (Bentyl) 10 Mg Cap 10 MG PO TID Y for Bowel Management, #6 CAP 0 Refills Prov: Razia Contreras MD 05/15/18 Ondansetron Odt (Zofran Odt) 4 Mg Tab 4 MG SL Q6HR Y for Nausea/Vomiting, #7 TAB 0 Refills Prov: Razia Contreras MD 05/15/18 Disposition: 01 DISCHARGE HOME Condition: Stable Razia Contreras MD May 15, 2018 08:19
[2018-05-15 08:29] VITALS: BP 168/75; PULSE 107; RESP 20; O2SAT 95
[2018-05-15 08:36] LABS: AUTOMATED NEUTROPHIL # 9.3 TH/MM3 (1.8-7.7); BASOPHIL % 0.2 % (0.0-2.0); EOSINOPHIL % 0.2 % (0.0-4.0); HEMATOCRIT 42.8 % (35.0-46.0); HEMOGLOBIN 14.4 GM/DL (11.6-15.3); LYMPH % 5.6 % (9.0-44.0); LYMPHOCYTE # 0.6 TH/MM3 (1.0-4.8); MEAN CELL VOLUME 90.5 FL (80.0-100.0); MEAN CORPUSCULAR HEMOGLOBIN 30.6 PG (27.0-34.0); MEAN CORPUSCULAR HGB CONC 33.8 % (32.0-36.0); MEAN PLATELET VOLUME 8.4 FL (7.0-11.0); MONO % 1.7 % (0.0-8.0); MONOCYTE # 0.2 TH/MM3 (0-0.9); NEUT % 92.3 % (16.0-70.0); PLATELET COUNT 274 TH/MM3 (150-450); RED BLOOD COUNT 4.72 MIL/MM3 (4.00-5.30); RED CELL DISTRIBUTION WIDTH 13.1 % (11.6-17.2); WHITE BLOOD COUNT 10.1 TH/MM3 (4.0-11.0)
[2018-05-15 08:52] LABS: ALBUMIN 3.5 GM/DL (3.4-5.0); ALT (GPT) 19 U/L (10-53); AST (GOT) 18 U/L (15-37); BICARBONATE 22.5 MEQ/L (21.0-32.0); BLOOD UREA NITROGEN 14 MG/DL (7-18); CALCIUM 8.7 MG/DL (8.5-10.1); CHLORIDE 107 MEQ/L (98-107); CREATININE 1.18 MG/DL (0.50-1.00); GLOMERULAR FILTRATION RATE 50 ML/MIN (>89); GLUCOSE,RANDOM 136 MG/DL (74-106); SODIUM (NA) 139 MEQ/L (136-145)
[2018-05-15 08:55] LABS: ALKALINE PHOSPHATASE 124 U/L (45-117); TOTAL BILIRUBIN ADULT 0.8 MG/DL (0.2-1.0)
[2018-05-15 09:11] LABS: BACTERIA, URINE OCC /hpf; BILIRUBIN, URINE NEG (NEG); BLOOD, URINE NEG (NEG); GLUCOSE,URINE NEG (NEG); KETONE, URINE NEG (NEG); MUCUS URINE FEW /lpf (OCC); NITRITE,URINE NEG (NEG); SQUAMOUS EPITHELIAL CELL URINE 1 /hpf (0-5); URINE COLOR YELLOW (YELLW/STRAW); URINE LEUKOCYTE ESTERASE NEG (NEG)
--- NOTE | 2018-05-15 09:33 | RADRPT ---
EXAM DATE: 05/15/2018 9:25 AM EDT AGE/SEX: 42 years / Female INDICATIONS: Right sided abdomen pain for one day. CLINICAL DATA: This is the patient's initial encounter. Patient reports that signs and symptoms have been present for 1 day and indicates a pain score of 7/10. MEDICAL/SURGICAL HISTORY: None. Cholecystectomy. Hysterectomy. ORAL CONTRAST: No oral contrast ingested. RADIATION DOSE: 28.69 CTDI (mGy) ; Patient body habitus [place] [facility] [place] 04/13/2018. . TECHNIQUE: Multiple contiguous axial images were obtained through the abdomen and pelvis following b olus infusion of 93 ml Omnipaque 350 (iohexol) nonionic water-soluble contrast as a single exam dos e. No oral contrast ingested. Using automated exposure control and adjustment of the mA and/or kV ac cording to patient size, the radiation dose was kept as low as reasonably achievable to obtain optima l diagnostic quality images. FINDINGS: Lower chest: No acute abnormality is identified. Hepatobiliary: No focal liver lesion is identified. Hepatic vasculature demonstrates no abnormality. Gallbladder is absent with clips in the gallbladder fossa. There is no bile duct dilatation. Kidneys: No hydronephrosis, stone, or mass. There is a 10 mm low-density lesion at the upper pole the left kidney. It is stable and has density measurements consistent with a simple cyst. Adrenal Glands: Within normal limits. Spleen: Spleen is mildly enlarged measuring 13.4 cm in length. Pancreas: Within normal limits. Vascular: The aorta is nonaneurysmal. Bowel/Mesentery: The stomach and small bowel demonstrate no abnormality. No acute colon abnormality i s seen. There is no free intraperitoneal air or fluid. Appendix and terminal ileum have a normal appe arance. Abdominal Wall: No hernia is visualized. Retroperitoneum: No lymphadenopathy. Bladder: No wall thickening or mass. Reproductive: Uterus is absent. No adnexal abnormality is seen. Inguinal: No lymphadenopathy or hernia. Musculoskeletal: No acute osseous abnormality is identified. CONCLUSION: 1. No abnormality is identified to explain the right-sided abdominal pain. 2. Stable mild splenomegaly. Electronically signed by: Alcon Farah MD 05/15/2018 9:32 AM EDT
[2018-05-15] MEDS ORDERED: ZOFR4TAB3 SL (09:44)
[2018-05-15] MEDS ORDERED: DICY10 PO (09:44)
[2018-05-15] MEDS ORDERED: ACETAMINOPHEN 325 MG TAB PO ONE (09:45)
[2018-05-15 10:14] VITALS: BP 144/95; PULSE 75; RESP 18; O2SAT 100
== END 2018-05-15 10:20 | disposition home or self-care (01) ==
LOC: NEPE 07:51
DX: K52.9 Noninfective gastroenteritis and colitis, unspecified (principal)
CPT/HCPCS: 74177; 80053; 81001; 83690; 85025; 96360; 96361; 96372; 99284; J0500; J2550; J7030; Q9967